=== PATIENT | female | born 1985 | race African-American/Black ===

== ENCOUNTER 2019-08-07 15:55 | Emergency (ER) | payer OTHER ==
[~2019-08-07] VITALS: Ht 172.7 cm; Wt 56.7 kg
[~2019-08-07 15:55] MED LIST: NICOTINE PATCH1 EAC5 TD; PRENATAL VITAM1 EACH PO; REGLAN10 MG ORAL; TYLENOL EXTRA500 MG ORAL
--- NOTE | 2019-08-07 16:09 | NUR ---
ED Nurse Note: Patient presents to ER for STD test and "check on her baby"; Patient unable to f/u with CLINICAL EVALUATOR due to lack of insurance; reports no vaginal bleeding or discharge, but c/o intermittent low abdominal pressure patient for "some time". No facial grimacing or guarding noted. Reports no fever, chills or N/V. Placed patient in room.
--- NOTE | 2019-08-07 16:19 | NUR ---
ED Nurse Note: Obtained urine specimen; sent to labs.
--- NOTE | 2019-08-07 16:20 | NUR ---
ED Nurse Note: Pt went to US accompanied by tech.
[2019-08-07 16:37] LABS: APPEARANCE,URINE CLEAR; BILIRUBIN, URINE NEGATIVE (NEGATIVE); GLUCOSE, URINE (UA) NEGATIVE (NEGATIVE); KETONES,URINE 1+ (NEGATIVE); LEUKOCYTE ESTERASE ,URINE 1+ (NEGATIVE); NITRITE,URINE NEGATIVE (NEGATIVE); PH,URINE 6 (4.5-8.0); PROTEIN,URINE NEGATIVE (NEGATIVE); UROBILINOGEN,URINE NORMAL MG/DL (0.0-1.0)
[2019-08-07 16:41] LABS: BASOPHILS % (AUTO) 0.5 % (0.0-2.0); EOSINOPHILS % (AUTO) 0.2 % (0.0-3.0); HEMATOCRIT 37.5 % (37.0-47.0); HEMOGLOBIN 11.8 G/DL (12.0-16.0); LYMPHOCYTES % (AUTO) 19.6 % (20.0-45.0); MEAN CORPUSCULAR VOLUME 95 FL (80-99); MONOCYTES % (AUTO) 5.5 % (1.0-10.0); NEUTROPHILS % (AUTO) 74.1 % (45.0-75.0); PLATELET COUNT 252 K/UL (150-450); RED BLOOD COUNT 3.94 M/UL (4.20-5.40); RED CELL DISTRIBUTION WIDTH 13.1 % (11.6-14.8); WHITE BLOOD COUNT 11.4 K/UL (4.8-10.8)
[2019-08-07 16:50] LABS: COLOR,URINE YELLOW
[2019-08-07 16:58] LABS: ANION GAP 9 mmol/L (5-15); BLOOD UREA NITROGEN 17 mg/dL (7-18); CALCIUM 8.9 MG/DL (8.5-10.1); CARBON DIOXIDE 25 MMOL/L (21-32); CHLORIDE 106 MMOL/L (98-107); CREATININE 0.7 MG/DL (0.55-1.30); POTASSIUM 3.7 MMOL/L (3.5-5.1); SODIUM 140 MMOL/L (136-145)
[2019-08-07 17:03] LABS: ALANINE AMINOTRANSFERASE 60 U/L (12-78); ALBUMIN 3.3 G/DL (3.4-5.0); ALBUMIN/GLOBULIN RATIO 0.9 (1.0-2.7); ALKALINE PHOSPHATASE 37 U/L (46-116); ASPARTATE AMINO TRANSFERASE 31 U/L (15-37); BILIRUBIN,TOTAL 0.2 MG/DL (0.2-1.0)
[2019-08-07] MEDS ORDERED: CEPHALEXIN500 MG ORAL (17:45)
--- NOTE | 2019-08-07 17:45 | Emergency Room Report ---
History of Present Illness General Chief Complaint: Complications Source: Patient Present Illness HPI 33-year-old female with history of tobacco smoke who has stopped smoking since she found out she is here complaining of abdominal cramping. Patient is G2, . Patient is 9 weeks . Has not follow-up with GUARD SERGEANT yet as patient insurance is changed. Denies any vaginal discharge, bleeding and spotting. Denies fever and chills, headache and syncope. Denies any tobacco use or marijuana use. Has been compliant with taking vitamins. Also takes Tylenol as needed for pain. Complains of being under a lot of stress and wants to make sure that her fetus is okay. Denies urinary symptoms at this time. Rates the pain 5 out of 10, intermittent, and suprapubic area. Denies fever and chills or recent travel. Appears to be stable with stable vital signs. Also wants to be tested for sexually transmitted diseases as it is unsure whether she contracted an STD from partner. Does not want prophylactic treatment. Does not have any vaginal discharge or pruritus or ulceration. Ask for a list of STD clinics to go to and get tested. Allergies: Coded Allergies: No Known Allergies (Unverified , 07/21/19) Patient History Past Medical History: see triage record Past Surgical History: none Pertinent Family History: none Last Menstrual Period: 06/10/2019 Now: Yes : 2 Para: 0 Immunizations: UTD Reviewed Nursing Documentation: PMH: Agreed; PSxH: Agreed Nursing Documentation-PMH Past Medical History: No Stated History Review of Systems All Other Systems: negative except mentioned in HPI Physical Exam Vital Signs Date Time Temp Pulse Resp B/P (MAP) Pulse Ox O2 Delivery O2 Flow Rate FiO2 08/07/19 16:02 98.4 87 16 108/75 (86) 98 Room Air Sp02 EP Interpretation: reviewed, normal General Appearance: no apparent distress, alert, GCS 15, non-toxic Head: normocephalic, atraumatic Eyes: bilateral eye normal inspection, bilateral eye PERRL ENT: hearing grossly normal, normal pharynx, no angioedema, normal voice Neck: full range of motion, supple/symm/no masses Respiratory: chest non-tender, lungs clear, normal breath sounds, no rhonchi, no retraction, no wheezing, speaking full sentences Cardiovascular #1: regular rate, rhythm, no edema, no murmur Gastrointestinal: normal bowel sounds, non tender, soft, non-distended, no guarding, no rebound Rectal: deferred Genitourinary: no CVA tenderness Musculoskeletal: normal inspection, back normal, no calf tenderness Neurologic: alert, motor strength/tone normal, oriented x3, sensory intact, responsive, speech normal Psychiatric: judgement/insight normal, memory normal, mood/affect normal, no suicidal/homicidal ideation Skin: no rash Lymphatic: no adenopathy Medical Decision Making PA Attestation All diagnoses and treatment plans were reviewed and discussed with my supervising physician Dr. Mg Diagnostic Impression: Primary Impression: Abdominal pain during intrauterine Additional Impression: UTI (urinary tract infection) ER Course 33-year-old female with history of tobacco smoke who has stopped smoking since she found out she is here complaining of abdominal cramping. Patient is G2, . Patient is 9 weeks . Has not follow-up with GUARD SERGEANT yet as patient insurance is changed. Denies any vaginal discharge, bleeding and spotting. Denies fever and chills, headache and syncope. Denies any tobacco use or marijuana use. Has been compliant with taking vitamins. Also takes Tylenol as needed for pain. Complains of being under a lot of stress and wants to make sure that her fetus is okay. Denies urinary symptoms at this time. Rates the pain 5 out of 10, intermittent, and suprapubic area. Denies fever and chills or recent travel. Appears to be stable with stable vital signs. Also wants to be tested for sexually transmitted diseases as it is unsure whether she contracted an STD from partner. Does not want prophylactic treatment. Does not have any vaginal discharge or pruritus or ulceration. Ask for a list of STD clinics to go to and get tested. Ddx considered but are not limited to: Ectopic , abdominal pain during , vaginal bleeding during , threatened , spontaneous , UTI urine Vital signs: are WNL, pt. is afebrile H&PE are most consistent with: Abdominal pain and UTI during ORDERS: CBC, CMP, UA, beta-hCG, type and screen, OB ultrasound, Keflex ED INTERVENTIONS: NS bolus DISCHARGE: At this time pt. is stable for d/c to home. Will provide printed patient care instructions, and any necessary prescriptions. Care plan and follow up instructions have been discussed with the patient prior to discharge. Gave patient a list of women's clinics to go to as well as STD clinics. Patient refused to get prophylactic treatment for possible chlamydia and gonorrhea. Advised patient to follow-up with GUARD SERGEANT. Take Tylenol as needed for pain. If worsening symptoms, worsening abdominal pain, cramping, vaginal bleeding or spotting return to the emergency room. CT/MRI/US Diagnostic Results CT/MRI/US Diagnostic Results : Imaging Test Ordered: OB ultrasound Impression FINDINGS: Gestation: Single live IUP approximately 8 weeks 3 days. heart rate 168 bpm. [place]-rump length 19.3 mm. Placenta/amniotic fluid: Cannot be adequately evaluated due to the early gestational age. Uterus/cervix: Cervical length 3.9 cm. No myometrial mass. Ovaries: Unremarkable. No mass. Free fluid: No free fluid. IMPRESSION: Single live IUP approximately 8 weeks 3 days. Last Vital Signs Date Time Temp Pulse Resp B/P (MAP) Pulse Ox O2 Delivery O2 Flow Rate FiO2 08/07/19 16:02 98.4 87 16 108/75 (86) 98 Room Air Disposition: HOME, SELF-CARE Condition: Stable Scripts Cephalexin* (KEFLEX*) 500 Mg Capsule 500 MG ORAL EVERY 6 HOURS for 7 Days, #28 CAP Prov: Mariel Gutierrez 08/07/19 Referrals: [facility],REFERR[facility] (PCP) Patient Instructions: Abdominal Pain During , [id number], Urinary Tract Infection, [id number] Additional Instructions: Take medication as directed, follow-up with GUARD SERGEANT, worsening symptoms, vaginal pain and spotting return to the emergency room Mariel Gutierrez Aug 07, 2019 17:44
[2019-08-07 18:03] VITALS: BP 108/75
--- NOTE | 2019-08-07 18:03 | NUR ---
ER DISCHARGE NOTE: Patient is cleared to be discharged per ERPA, pt is aox4, on room air, with stable vital signs. pt was given dc and prescription instructions, pt was able to verbalize understanding, pt id band and iv site removed without complications. pt is able to ambulate with steady gait. pt took all belongings.
--- NOTE | 2019-08-07 18:12 | Diagnostic Imaging Report ---
EXAM: US First Trimester , Transabdominal and Transvaginal CLINICAL HISTORY: PAIN TECHNIQUE: Real-time transabdominal and transvaginal obstetrical ultrasound of the maternal pelvis and a first trimester with image documentation. Transvaginal imaging was used for better evaluation of the fetus and adnexa. COMPARISON: 07/21/2019. FINDINGS: Gestation: Single live IUP approximately 8 weeks 3 days. heart rate 168 bpm. [place]-rump length 19.3 mm. Placenta/amniotic fluid: Cannot be adequately evaluated due to the early gestational age. Uterus/cervix: Cervical length 3.9 cm. No myometrial mass. Ovaries: Unremarkable. No mass. Free fluid: No free fluid. IMPRESSION: Single live IUP approximately 8 weeks 3 days.
== END 2019-08-07 18:03 | disposition home or self-care (01) ==
LOC: EMR 16:13
DX: O23.41 Unspecified infection of urinary tract in pregnancy, first trimester (principal); Z3A.08 8 weeks gestation of pregnancy; R10.9 Unspecified abdominal pain
CPT/HCPCS: 36415; 76801; 76817; 80053; 81003; 84702; 85025; 86850; 86900; 86901; 96360; Z7502; 99284

== ENCOUNTER 2019-10-02 11:52 | Emergency (ER) | payer MEDICAID, OTHER ==
[~2019-10-02] VITALS: Ht 172.7 cm; Wt 54.4 kg
[~2019-10-02 11:52] MED LIST changes: +CEPHALEXIN500 MG ORAL
--- NOTE | 2019-10-02 12:16 | NUR ---
she movED Nurse Note: Pt walked into ED s/p fall 1 week ago. Pt is 14 weeks . Pt has lower back pain 8/10 when she moves. Pt is alert adn orientedx4, ambulatory. Pt denies nausea, vaginal bleeding, cough, congestion, fever.
[2019-10-02 12:18] VITALS: BP 125/79
--- NOTE | 2019-10-02 13:13 | Emergency Room Report ---
History of Present Illness General Chief Complaint: Multiple Trauma/Fall Source: Patient Present Illness HPI Patient presents with complaints of lower abdominal discomfort she reports that she had a fall about 7 days ago she was attempting to follow-up with her OB physician however the office is been closed patient denies any vaginal bleeding or spotting denies any vomiting or diarrhea denies any fevers or chills denies any continuous contractions Allergies: Coded Allergies: No Known Allergies (Unverified , 07/21/19) COVID-19 Screening Contact w/high risk pt: No Recent Travel to affected area: No Experienced COVID-19 symptoms?: No Patient History Past Medical History: see triage record Last Menstrual Period: 06/10/2019 Now: Yes - 4 MONTHS Reviewed Nursing Documentation: PMH: Agreed; PSxH: Agreed Nursing Documentation-PMH Past Medical History: No History, Except For Review of Systems All Other Systems: negative except mentioned in HPI Physical Exam Vital Signs Date Time Temp Pulse Resp B/P (MAP) Pulse Ox O2 Delivery O2 Flow Rate FiO2 10/02/19 12:04 98.1 105 16 120/77 (91) 96 Room Air 10/02/19 12:18 98 Sp02 EP Interpretation: reviewed, normal General Appearance: well appearing, no apparent distress Head: normocephalic, atraumatic Eyes: bilateral eye PERRL, bilateral eye EOMI ENT: hearing grossly normal, normal pharynx, TMs + canals normal, uvula midline Neck: full range of motion, supple, no meningismus, no bony tend Respiratory: lungs clear, normal breath sounds, no rhonchi, no respiratory distress, no retraction, no accessory muscle use Cardiovascular #1: normal peripheral pulses, regular rate, rhythm, no edema, no gallop, no JVD, no murmur Gastrointestinal: normal bowel sounds, non tender, soft, non-distended, no hernia, no pulsatile mass, no rebound, other - abdomen palpable Genitourinary: no CVA tenderness Musculoskeletal: normal inspection Neurologic: motor strength/tone normal, clinical nursing instructor III-XII nml as tested, oriented x3 , sensory intact, responsive Psychiatric: mood/affect normal Skin: no rash Lymphatic: normal inspection, no adenopathy Medical Decision Making Diagnostic Impression: Primary Impression: fall in ER Course Multiple differentials including but not limited to incomplete miscarriage, rupture tear, all entertained this injury occurred about 7 days ago ultrasound was performed No obvious signs of rupture or acute process patient appears to be approximately 17 weeks And at this time is encouraged to have close outpatient follow-up CT/MRI/US Diagnostic Results CT/MRI/US Diagnostic Results : Impression Pelvic ultrasoundImpression: 17 week one day, by average of ultrasound measurements, single live intrauterine . No unusual features Last Vital Signs Date Time Temp Pulse Resp B/P (MAP) Pulse Ox O2 Delivery O2 Flow Rate FiO2 10/02/19 12:18 98.1 101 18 125/79 98 Room Air 10/02/19 12:18 98 Status: improved Disposition: HOME, SELF-CARE Condition: Improved Referrals: [facility],REFERRING (PCP) Patient Instructions: Abdominal Pain During , Second Trimester of , [id number] Additional Instructions: Patient is provided with the discharge instructions notified to follow up with primary doctor in the next 2-3 days otherwise return to the er with any worsening symptoms. Please note that this report is being documented using [employer] technology. This can lead to erroneous entry secondary to incorrect interpretation by the dictating instrument. Christiana Summers DO Oct 02, 2019 13:13
[2019-10-02 13:36] VITALS: BP 122/77
--- NOTE | 2019-10-02 13:36 | NUR ---
ER DISCHARGE NOTE: Patient is cleared to be discharged per ERMD, pt is aox4, on room air, with stable vital signs. pt was given dc and prescription instructions, pt was able to verbalize understanding, pt id band removed. pt is able to ambulate with steady gait. pt took all belongings.
--- NOTE | 2019-10-02 13:59 | Diagnostic Imaging Report ---
Indication: Pelvic pain, patient, recent trauma Technique: Transabdominal and transvaginal images of the fetus and uterus Comparison: 08/07/2019 Findings: There is a single live intrauterine . There is positive heart activity, heart rate 163 bpm. The placenta is anterior. It clears the internal cervical os. The cervix is closed, endocervical canal measuring 4 cm in length. Grossly normal amniotic fluid volume. Estimated gestational age by average ultrasound measurements is 17 weeks one day. Estimated gestational age by dates is 16 weeks 2 days. Estimated date of delivery is 03/10/2020. When compared to the prior exam, this represents appropriate interval growth Detailed assessment of the anatomy not performed, due to early stage of , emergent nature of exam. Grossly normal spine, cord insertion, four-chamber heart are demonstrated. Impression: 17 week one day, by average of ultrasound measurements, single live intrauterine . No unusual features
== END 2019-10-02 13:37 | disposition home or self-care (01) ==
LOC: EMR 12:18
DX: O26.92 Pregnancy related conditions, unspecified, second trimester (principal); Z3A.17 17 weeks gestation of pregnancy; W19.XXXA Unspecified fall, initial encounter
CPT/HCPCS: 76805; 76817; Z7502; 99284

== ENCOUNTER 2019-12-07 13:09 | Emergency (ER) | payer MEDICAID ==
[~2019-12-07] VITALS: Ht 175.3 cm; Wt 65.3 kg
[2019-12-07] MEDS ORDERED: Lidocaine 1% MPF 10mg/ml 5ml INJ ONE (13:45)
[2019-12-07] MEDS ORDERED: Azithromycin 250mg tab ORAL ONE (13:45)
[2019-12-07 13:49] VITALS: BP 114/67
--- NOTE | 2019-12-07 13:49 | NUR ---
ED Nurse Note:pt. c/o vaginal discharge possible STD, urine sent to labs and given antibiotics
[2019-12-07 14:07] LABS: APPEARANCE,URINE CLEAR; BILIRUBIN, URINE NEGATIVE (NEGATIVE); COLOR,URINE PALE YELLOW; GLUCOSE, URINE (UA) NEGATIVE (NEGATIVE); KETONES,URINE NEGATIVE (NEGATIVE); LEUKOCYTE ESTERASE ,URINE NEGATIVE (NEGATIVE); NITRITE,URINE NEGATIVE (NEGATIVE); PH,URINE 6 (4.5-8.0); PROTEIN,URINE 1+ (NEGATIVE); UROBILINOGEN,URINE NORMAL MG/DL (0.0-1.0)
--- NOTE | 2019-12-07 14:31 | Emergency Room Report ---
History of Present Illness General Chief Complaint: Female Urogenital Problems Source: Patient Present Illness HPI 34-year-old female with no symptom past medical history who is 26 weeks here complaining of few days of fishy odor from vaginal area and pruritus without any discharge. Denies any dysuria or urinary frequency at this time. Reports that she is sexually active with her partner however does not know the STD status of her sexual partner. Denies any abdominal pain, vaginal bleeding or spotting. Up-to-date with SLING OPERATOR visits and has an upcoming visit in 2 weeks. Denies any nausea vomiting. Reports that is up-to- date with abdominal ultrasound. Has not taken medication for symptom relief other than Monistat [id number]. Denies any vaginal ulcers. Denies headache and dizziness, syncope, hematuria, no other associated symptoms. Appears to be stable with stable vital signs and afebrile. Reports that has history of getting BV and yeast infection repeatedly. Is requesting to be treated for potential chlamydia and gonorrhea. Allergies: Coded Allergies: No Known Allergies (Unverified , 07/21/19) COVID-19 Screening Contact w/high risk pt: No Recent Travel to affected area: No Experienced COVID-19 symptoms?: No COVID-19 Testing performed COMPUTER PROGRAMMING MANAGER: No Patient History Past Medical History: see triage record Past Surgical History: none Pertinent Family History: none Last Menstrual Period: na Now: Yes : 2 Para: 0 Immunizations: UTD Reviewed Nursing Documentation: PMH: Agreed; PSxH: Agreed Nursing Documentation-PMH Past Medical History: No Stated History Review of Systems All Other Systems: negative except mentioned in HPI Physical Exam Vital Signs Date Time Temp Pulse Resp B/P (MAP) Pulse Ox O2 Delivery O2 Flow Rate FiO2 12/07/19 13:16 98.4 130 17 114/67 (83) 98 Room Air Sp02 EP Interpretation: reviewed, normal General Appearance: no apparent distress, alert, GCS 15, non-toxic Head: normocephalic, atraumatic Eyes: bilateral eye normal inspection, bilateral eye PERRL ENT: normal ENT inspection Neck: full range of motion, supple/symm/no masses Respiratory: chest non-tender, lungs clear, normal breath sounds, speaking full sentences Cardiovascular #1: regular rate, rhythm, no edema Gastrointestinal: normal bowel sounds, non tender, soft, no mass, non-distended , no guarding, no hernia, no pulsatile mass, no rebound Rectal: deferred Genitourinary: no CVA tenderness Musculoskeletal: back normal Neurologic: alert, motor strength/tone normal, oriented x3, sensory intact, responsive, speech normal Psychiatric: judgement/insight normal, memory normal, mood/affect normal, no suicidal/homicidal ideation Skin: no rash Lymphatic: no adenopathy Medical Decision Making PA Attestation All my diagnosis and treatment plans were reviewed ad discussed with my supervising physician Dr. Engle Diagnostic Impression: Primary Impression: Vaginitis Additional Impression: UTI (urinary tract infection) ER Course 34-year-old female with no symptom past medical history who is 26 weeks here complaining of few days of fishy odor from vaginal area and pruritus without any discharge. Denies any dysuria or urinary frequency at this time. Reports that she is sexually active with her partner however does not know the STD status of her sexual partner. Denies any abdominal pain, vaginal bleeding or spotting. Up-to-date with SLING OPERATOR visits and has an upcoming visit in 2 weeks. Denies any nausea vomiting. Reports that is up-to- date with abdominal ultrasound. Has not taken medication for symptom relief other than Monistat [id number]. Denies any vaginal ulcers. Denies headache and dizziness, syncope, hematuria, no other associated symptoms. Appears to be stable with stable vital signs and afebrile. Reports that has history of getting BV and yeast infection repeatedly. Is requesting to be treated for potential chlamydia and gonorrhea. Ddx considered but are not limited to: UTI during , STD during , PID, vaginitis, pyelonephritis, urinary incontinence, prolapsed bladder Vital signs: are WNL, pt. is afebrile H&PE are most consistent with: UTI during , vaginitis ORDERS: UA, urine cx, metronidazole vaginal cream, Monistat, clotrimazole vaginal cream, Keflex ED INTERVENTIONS: Rocephin IM, azithromycin DISCHARGE: At this time pt. is stable for d/c to home. Will provide printed patient care instructions, and any necessary prescriptions. Care plan and follow up instructions have been discussed with the patient prior to discharge. Gave list of STD clinics to patient, patient to follow primary doctor and OB/ MANUFACTURING LAB TECHNICIAN, at this time since patient does not have any abdominal pain no vaginal discharge or cramping no ultrasound is needed and no further work-up needed. If worsening symptoms return to the emergency room. Patient was evaluated in the context of the global COVID-19 pandemic, which necessitated consideration that the patient might be at risk for infection with the SARS-COV-2 virus that causes COVID-19. Institutional protocols and algorithms that pertain to the evaluation of patients at risk for COVID-19 are in a state of rapid change based on information relieved by multiple regulatory bodies including the CDC and the federal and state organizations. These policies and algorithms were followed during the patient's care in the ED. Last Vital Signs Date Time Temp Pulse Resp B/P (MAP) Pulse Ox O2 Delivery O2 Flow Rate FiO2 12/07/19 13:49 98.4 17 114/67 98 Room Air 12/07/19 13:16 130 Disposition: HOME, SELF-CARE Condition: Stable Scripts Clotrimazole* (LOTRIMIN*) 15 Gm Cream..g. 1 APPLIC TOPIC TWICE A DAY, #15 GM Prov: Mariel Gutierrez 12/07/19 Miconazole Nitrate (Monistat 1) 1 Each Kit 1 EACH VG DAILY for 3 Days, #3 PACK Prov: Mariel Gutierrez 12/07/19 Metronidazole* (METROGEL-VAGINAL*) 70 Gm Gel.w.appl 1 APPL VAGIN EVERY 12 HOURS, #70 GM Prov: Mariel Gutierrez 12/07/19 Cephalexin* (KEFLEX*) 500 Mg Capsule 500 MG ORAL EVERY 12 HOURS for 7 Days, #14 CAP 0 Refills Prov: Mariel Gutierrez 12/07/19 Referrals: [facility],REFERRING (PCP) Patient Instructions: Vaginitis, Urinary Tract Infection Additional Instructions: Take medication as directed, follow-up with your SLING OPERATOR, if worsening symptoms return to the emergency room Mariel Gutierrez Dec 07, 2019 14:31
[2019-12-07] MEDS ORDERED: METROGEL-VAGINA70 G1 VAGIN (14:32)
[2019-12-07] MEDS ORDERED: MONISTAT 11 EACH VG (14:32)
[2019-12-07] MEDS ORDERED: CEPHALEXIN500 MG ORAL (14:32)
[2019-12-07] MEDS ORDERED: CLOTRIMAZOLE15 GM TOPIC (14:32)
[2019-12-07 14:40] VITALS: BP 114/67
--- NOTE | 2019-12-07 14:40 | NUR ---
ED Nurse Note: Pt cleared by health care Provider for discharge. DC instructions/prescription was given and explained to pt and verbalized understanding of teachings. All medical deviecs such as ID band removed. Pt is AAO x4, ambulatory and left with all personal belongings.
== END 2019-12-07 14:40 | disposition home or self-care (01) ==
LOC: EMR 13:44
DX: O23.592 Infection of other part of genital tract in pregnancy, second trimester (principal); O23.42 Unspecified infection of urinary tract in pregnancy, second trimester; Z3A.26 26 weeks gestation of pregnancy; N76.0 Acute vaginitis
CPT/HCPCS: 81003; 96372; 96374; J0696; Q0144; Z7502; 99284